=== PATIENT | female | born 1975 | race American Indian/Alaskan Native ===

== ENCOUNTER 2016-09-03 17:51 | Emergency (ER) | payer SELFPAY ==
--- NOTE | 2016-09-03 18:37 | Emergency Department Report ---
Chief Complaint: High BP Stated Complaint: HTN-HEADACHE 165/100 Time Seen by Provider: 09/03/16 18:14 - HPI History of Present Illness: This is a 40-year-old female that comes in for concerns of high blood pressure. Patient reports that she's taken her blood pressure at home it was 165/100 she reports she's been having a headache for 2 days dizziness and nausea and some blurred vision. Patient does have a past medical history of hypertension and diabetes currently she is on metformin 500 mg 3 times a day glyburide 5 mg 3 times a day last took that yesterday she is on amlodipine 5 mg for hypertension and triamterene 37.5 and 25 daily. Patient does inform me that she 's been a little nervous of eating foods secondary to not sure what to eat when her blood pressure elevates. So we will see patient today to respond her blood pressure. - Exam Vital Signs: Vital Signs 09/03/16 17:55 Temperature 98.2 F Pulse Rate 82 Respiratory 16 Rate Blood Pressure 147/104 O2 Sat by Pulse 100 Oximetry Physical Exam: He is alert and oriented 3 cardiovascular S1-S2 regular rate and rhythm respiratory clear to auscultation MSE screening note: Focused history and physical exam performed. Due to findings the following was ordered: Appropriate last water for patient should be evaluated by the main ER ordered amlodipine 5mg milligrams ED Disposition for MSE Condition: Stable
[2016-09-03 19:12] LABS: Hematocrit 42.4 % (30.3-42.9); Mean Corpuscular HGB Conc 33 % (30-34); Mean Corpuscular Hemoglobin 31 pg (28-32); Mean Corpuscular Volume 94 fl (79-97); Platelet Count 421 K/mm3 (140-440); Red Blood Count 4.53 M/mm3 (3.65-5.03); Red Cell Distribution Width 14.4 % (13.2-15.2); White Blood Count 8.9 K/mm3 (4.5-11.0)
[2016-09-03 19:29] LABS: BUN/Creatinine Ratio 11.11; Blood Urea Nitrogen 10 mg/dL (7-17); Calcium 9.6 mg/dL (8.4-10.2); Carbon Dioxide 28 mmol/L (22-30); Chloride 94.6 mmol/L (98-107); Glucose 106 mg/dL (65-100); Potassium 3.9 mmol/L (3.6-5.0); Sodium 137 mmol/L (137-145)
[2016-09-03 19:33] LABS: Anion Gap 18 mmol/L
[2016-09-03] MEDS ORDERED: NORVASC PO ONE (20:41)
[2016-09-03 22:48] VITALS: BP 137/96
--- NOTE | 2016-09-07 05:30 | ED Elopement Review ---
ED Pt Elopement review - Results review Lab results: Laboratory Tests 09/03/16 09/03/16 18:51 18:51 WBC 8.9 RBC 4.53 Hgb 14.0 Hct 42.4 MCV 94 MCH 31 MCHC 33 RDW 14.4 Plt Count 421 Sodium 137 Potassium 3.9 Chloride 94.6 L Carbon Dioxide 28 BUN 10 Creatinine 0.9 Estimated GFR > 60 BUN/Creatinine Ratio 11.11 Glucose 106 H Calcium 9.6 - Call Back decision Pt Call Back Decision: No action required
== END 2016-09-03 22:48 | disposition left against medical advice (07) ==
LOC: ED 17:51
DX: I10 Essential (primary) hypertension (principal); R42 Dizziness and giddiness; R11.0 Nausea; Z53.21 Procedure and treatment not carried out due to patient leaving prior to being seen by health care provider
CPT/HCPCS: 36415; 80048; 85027

== ENCOUNTER 2016-09-08 05:40 | Emergency (ER) | payer SELFPAY | END 2016-09-08 05:42 | disposition left against medical advice (07) | LOC: ED 05:40 | DX: R10.10 Upper abdominal pain, unspecified (principal); Z53.21 Procedure and treatment not carried out due to patient leaving prior to being seen by health care provider ==

== ENCOUNTER 2016-09-08 12:39 | Emergency (ER) | payer BC ==
--- NOTE | 2016-09-08 23:04 | Emergency Department Report ---
ED Abdominal Pain HPI - General Chief Complaint: Abdominal Pain Stated Complaint: UPPER ABD PAIN Time Seen by Provider: 09/08/16 23:03 Source: patient Mode of arrival: Ambulatory Limitations: No Limitations - History of Present Illness Initial Comments: Patient here reports periumbilical and upper abdominal pain for 3-4 days with nausea and reports that she is constipated. She says she has not had a bowel movement for 1 week. Patient says she used an enema but only little pellets, out of her rectal area. He says she's had similar issues with constipation in the past. Has any urinary burning, frequency, urgency or blood in urine. Denies any back pain. Reports some nausea. Denies any vaginal bleeding or discharge. Patient denies any fever or chills. MD Complaint: abdominal pain Onset/Timin -: days(s) Location: periumbilical, epigastric Radiation: none Migration to: no migration Severity: moderate Severity scale (0 -10): 7 Quality: cramping Consistency: intermittent Improves With: nothing Worsens With: nothing Context: other (patient reports that she is constipated) Associated Symptoms: nausea, constipation. denies: vomiting, diarrhea, fever, chills, dysuria, melena, hematuria, anorexia, syncope Treatments Prior to Arrival: other (Enema) - Related Data Previous Rx's Medication Instructions Recorded Last Taken Type Docusate Sodium [Colace] 100 mg PO BID #60 capsule 09/09/16 Unknown Rx Magnesium Citrate [Citrate of 300 ml PO ONCE #1 bottle 09/09/16 Unknown Rx Magnesia] Allergies Allergy/AdvReac Type Severity Reaction Status Date / Time No Known Allergies Allergy Unverified 01/10/15 21:40 ED Review of Systems ROS: Stated complaint: UPPER ABD PAIN Other details as noted in HPI Comment: All other systems reviewed and negative Constitutional: denies: chills, fever Eyes: eye pain ENT: denies: ear pain, throat pain, congestion Respiratory: no symptoms reported Cardiovascular: denies: chest pain, palpitations, edema, syncope Gastrointestinal: abdominal pain, nausea, constipation. denies: vomiting, diarrhea, hematemesis, melena, hematochezia Genitourinary: denies: urgency, dysuria, frequency, hematuria, discharge, abnormal menses, dyspareunia Musculoskeletal: denies: back pain, arthralgia Skin: denies: rash Neurological: denies: headache, weakness, numbness, paresthesias, confusion, abnormal gait, vertigo ED Past Medical Hx - Past Medical History Previous Medical History?: Yes Hx Hypertension: Yes Hx Asthma: Yes - Surgical History Past Surgical History?: No - Family History Family history: no significant - Social History Smoking Status: Never Smoker Substance Use Type: None - Medications Home Medications: Home Medications Medication Instructions Recorded Confirmed Last Taken Type Docusate Sodium [Colace] 100 mg PO BID #60 capsule 09/09/16 Unknown Rx Magnesium Citrate [Citrate of 300 ml PO ONCE #1 bottle 09/09/16 Unknown Rx Magnesia] ED Physical Exam - General Limitations: No Limitations General appearance: alert, in no apparent distress - Head Head exam: Present: atraumatic, normocephalic, normal inspection - Eye Eye exam: Present: normal appearance, PERRL, EOMI Pupils: Present: normal accommodation - ENT ENT exam: Present: normal exam, normal orophraynx, mucous membranes dry, mucous membranes moist, TM's normal bilaterally, normal external ear exam - Neck Neck exam: Present: normal inspection, full ROM. Absent: tenderness, meningismus, lymphadenopathy - Respiratory Respiratory exam: Present: normal lung sounds bilaterally. Absent: respiratory distress, chest wall tenderness - Cardiovascular Cardiovascular Exam: Present: regular rate, normal rhythm, normal heart sounds - GI/Abdominal GI/Abdominal exam: Present: soft, normal bowel sounds. Absent: distended, tenderness, guarding, rebound, rigid, organomegaly, mass, bruit, pulsatile mass , hernia - Extremities Exam Extremities exam: Present: normal inspection, full ROM, normal capillary refill. Absent: tenderness, pedal edema, joint swelling, calf tenderness - Back Exam Back exam: Present: normal inspection, full ROM. Absent: tenderness, CVA tenderness (R), CVA tenderness (L), muscle spasm, paraspinal tenderness, vertebral tenderness, rash noted - Neurological Exam Neurological exam: Present: alert, oriented X3, normal gait - Psychiatric Psychiatric exam: Present: normal affect, normal mood - Skin Skin exam: Present: warm, dry, intact, normal color. Absent: rash ED Course Vital Signs 09/08/16 13:12 Temperature 99.0 F Pulse Rate 89 Respiratory 16 Rate Blood Pressure 132/95 O2 Sat by Pulse 99 Oximetry Vital Signs 09/08/16 09/09/16 13:12 03:50 Temperature 99.0 F 98.8 F Pulse Rate 89 86 Respiratory 16 16 Rate Blood Pressure 132/95 Blood Pressure 128/68 [Left] O2 Sat by Pulse 99 99 Oximetry - Reevaluation(s) Reevaluation #1: 09/09/16 01:15 Patient stable at present. She is lying quietly in bed in no acute distress Reevaluation #2: 09/09/16 03:04 Abdominal exam remains unchanged. She received potassium 40 mEq for a potassium level of 3.4. ED Medical Decision Making - Lab Data Result diagrams: 09/08/16 23:38 09/08/16 23:38 Lab Results 09/08/16 09/08/16 09/08/16 Range/Units 23:30 23:38 23:38 WBC 13.2 H (4.5-11.0) K/mm3 RBC 4.40 (3.65-5.03) M/mm3 Hgb 13.8 (10.1-14.3) gm/dl Hct 41.3 (30.3-42.9) % MCV 94 (79-97) fl MCH 31 (28-32) pg MCHC 33 (30-34) % RDW 13.9 (13.2-15.2) % Plt Count 374 (140-440) K/mm3 Sodium 140 (137-145) mmol/L Potassium 3.4 L (3.6-5.0) mmol/L Chloride 96.2 L (98-107) mmol/L Carbon Dioxide 31 H (22-30) mmol/L Anion Gap 16 mmol/L BUN 15 (7-17) mg/dL Creatinine 1.0 (0.7-1.2) mg/dL Estimated GFR > 60 ml/min BUN/Creatinine Ratio 15.00 % Glucose 81 (65-100) mg/dL Calcium 9.5 (8.4-10.2) mg/dL Amylase 61 (27-131) units/L Lipase 32 (13-60) units/L HCG, Qual (Negative) Urine Color Yellow (Yellow) Urine Turbidity Clear (Clear) Urine pH 6.0 (5.0-7.0) Ur Specific Prole 1.023 (1.003-1.030) Urine Protein <15 mg/dl (Negative) mg/dL Urine Glucose (UA) Neg (Negative) mg/dL Urine Ketones Neg (Negative) mg/dL Urine Blood Neg (Negative) Urine Nitrite Neg (Negative) Urine Bilirubin Neg (Negative) Urine Urobilinogen 2.0 (<2.0) mg/dL Ur Leukocyte Esterase Neg (Negative) Urine WBC (Auto) 1.0 (0.0-6.0) /HPF Urine RBC (Auto) < 1.0 (0.0-6.0) /HPF U Epithel Cells (Auto) 4.0 (0-13.0) /HPF Urine Mucus Few /HPF 09/08/16 Range/Units 23:38 WBC (4.5-11.0) K/mm3 RBC (3.65-5.03) M/mm3 Hgb (10.1-14.3) gm/dl Hct (30.3-42.9) % MCV (79-97) fl MCH (28-32) pg MCHC (30-34) % RDW (13.2-15.2) % Plt Count (140-440) K/mm3 Sodium (137-145) mmol/L Potassium (3.6-5.0) mmol/L Chloride (98-107) mmol/L Carbon Dioxide (22-30) mmol/L Anion Gap mmol/L BUN (7-17) mg/dL Creatinine (0.7-1.2) mg/dL Estimated GFR ml/min BUN/Creatinine Ratio % Glucose (65-100) mg/dL Calcium (8.4-10.2) mg/dL Amylase (27-131) units/L Lipase (13-60) units/L HCG, Qual Negative (Negative) Urine Color (Yellow) Urine Turbidity (Clear) Urine pH (5.0-7.0) Ur Specific Prole (1.003-1.030) Urine Protein (Negative) mg/dL Urine Glucose (UA) (Negative) mg/dL Urine Ketones (Negative) mg/dL Urine Blood (Negative) Urine Nitrite (Negative) Urine Bilirubin (Negative) Urine Urobilinogen (<2.0) mg/dL Ur Leukocyte Esterase (Negative) Urine WBC (Auto) (0.0-6.0) /HPF Urine RBC (Auto) (0.0-6.0) /HPF U Epithel Cells (Auto) (0-13.0) /HPF Urine Mucus /HPF - Radiology Data Radiology results: report reviewed, image reviewed interpreted by me: Moderate stool noted in colon. CT scan of the abdomen and pelvis reveals there is no evidence of intestinal or urinary tract obstruction. No ileus or enteritis. The appendix is normal. GI tract shows no obstruction. Liver, spleen, gallbladder, pancreas, adrenals and kidneys are normal normal lymph nodes and vasculature the uterus is normal and both ovaries have normal size and appearance. No free fluid noted. X-ray abdominal series with chest 1 view revealed no acute abnormalities. Nonobstructive bowel gas pattern. - Medical Decision Making ED course: Discussed with patient her lab work and discussed with her that her potassium level was mildly decreased at 3.4. She was repleted with 40 mg of K- DUR oF in emergency room. Discussed with her that she needs to eat bananas which is rich in potassium. I discussed with her that her urine was negative for infection and she was not . White blood cells mildly elevated at less than 14. Patient abdominal exam remained normal. CT scan of the abdomen and pelvis was normal and abdominal series with chest PA one view revealed normal findings. PT does have moderate amount of stool in colon. Cells were discussed with patient. He voiced understanding of discharge instruction and need to follow up with GI doctor for further evaluation of constipation and abdominal pain. She is not having any abdominal pain at present. Discharged home in stable condition with prescription for Mag. Citrate and Colace. Critical care attestation.: If time is entered above; I have spent that time in minutes in the direct care of this critically ill patient, excluding procedure time. ED Disposition Clinical Impression: Constipation Qualifiers: Constipation type: unspecified constipation type Qualified Code(s): K59.00 - Constipation, unspecified Abdominal pain Qualifiers: Abdominal location: periumbilical Qualified Code(s): R10.33 - Periumbilical pain Disposition: DISCHARGED TO HOME OR SELFCARE Is pt being admited?: No Does the pt Need Aspirin: No Condition: Stable Instructions: Abdominal Pain (ED), High Fiber Diet (ED), Constipation (ED) Additional Instructions: increase your fluid intake Eat food high in fiber to include fruits and vegetables. Take medication as prescribed. Your potassium was mildly decreased at 3.4. You received supplement in emergency room. These eat banana twice daily as this is Rich in potassium. He will need to follow-up with your primary care physician for repeat lab work. Prescriptions: Magnesium Citrate [Citrate of Magnesia] 300 ml PO ONCE #1 bottle Docusate Sodium [Colace] 100 mg PO BID #60 capsule Referrals: LEN TSAI MD [Primary Care Provider] - 09/10/16 [facility] [Provider Group] - 09/10/16 Forms: Accompanied Note, Work/School Release Form(ED)
[2016-09-09 00:16] LABS: Bilirubin,Urine NEG (Negative); Blood,Urine NEG (Negative); Ketones,Urine NEG (Negative); Leukocyte Esterase,Urine NEG (Negative); Mucus,Urine FEW /HPF; Nitrite,Urine NEG (Negative); Protein,Urine <15 mg/dL mg/dL (Negative); RBC,Urine < 1.0 /HPF (0.0-6.0)
[2016-09-09 00:54] LABS: Hematocrit 41.3 % (30.3-42.9); Hemoglobin 13.8 gm/dl (10.1-14.3); Mean Corpuscular HGB Conc 33 % (30-34); Mean Corpuscular Hemoglobin 31 pg (28-32); Mean Corpuscular Volume 94 fl (79-97); Platelet Count 374 K/mm3 (140-440); Red Cell Distribution Width 13.9 % (13.2-15.2); White Blood Count 13.2 K/mm3 (4.5-11.0)
[2016-09-09 01:40] LABS: Amylase 61 units/L (27-131); Blood Urea Nitrogen 15 mg/dL (7-17); Calcium 9.5 mg/dL (8.4-10.2); Carbon Dioxide 31 mmol/L (22-30); Chloride 96.2 mmol/L (98-107); Glucose 81 mg/dL (65-100); Lipase 32 units/L (13-60); Potassium 3.4 mmol/L (3.6-5.0); Sodium 140 mmol/L (137-145)
[2016-09-09 01:41] LABS: Anion Gap 16 mmol/L
--- NOTE | 2016-09-09 02:14 | XRay Report ---
FINAL REPORT PROCEDURE: XR ABD SERIES W CXR 1V TECHNIQUE: Abdominal series complete, including supine and upright AP views of the abdomen and frontal chest. HISTORY: constipation and abd pain COMPARISON: No prior studies are available for comparison. FINDINGS: Heart: Normal. Mediastinum/Vessels: Normal. Lungs/Pleural space: Normal. Bowel gas pattern: Nonobstructive. Masses or calcifications: None. Bony structures: No acute osseous abnormality. Other: No free intraperitoneal air. IMPRESSION: No acute abnormality.
[2016-09-09] MEDS ORDERED: K-DUR PO ONE (02:27)
--- NOTE | 2016-09-09 02:59 | Cat Scan Report ---
FINAL REPORT PROCEDURE: CT ABDOMEN PELVIS WO CON TECHNIQUE: Computerized axial tomography of the abdomen and pelvis was performed without intravenous contrast. This study is performed without intravascular contrast material and its sensitivity for abdominal and pelvic pathology, including neoplasms, inflammation, abscess, free fluid, thrombosis, arterial dissection and infarction, is reduced compared with a contrast enhanced study. HISTORY: abdominal pain COMPARISON: No prior studies are available for comparison. FINDINGS: Visualized lower thorax: No significant abnormality. Liver: Normal size and attenuation. Spleen: Normal size and attenuation. Gallbladder and biliary system: Normal. Pancreas: Normal. Adrenals: Normal. Kidneys: Normal. GI tract: No obstruction. No ileus or enteritis. The cecum, appendix and colon are normal.. Lymph nodes and mesentery: Normal. Vasculature: Normal. Bladder: Normal. Reproductive organs: The uterus is normal. Both ovaries have normal size and appearance.. Peritoneum: No free fluid. Musculoskeletal structures: No significant abnormality. Other: None. IMPRESSION: There is no evidence of intestinal or urinary tract obstruction. No ileus or enteritis. The appendix is normal..
[2016-09-09 03:35] LABS: Basophils % (Manual) 0 % (0.0-1.8); Blastocytes % (Manual) 0 %; RBC Morphology Normal
[2016-09-09 03:36] LABS: Diff Status Complete
[2016-09-09 03:56] VITALS: BP 128/68
== END 2016-09-09 04:25 | disposition home or self-care (01) ==
LOC: ED 12:39
DX: K59.00 Constipation, unspecified (principal); R10.33 Periumbilical pain; I10 Essential (primary) hypertension; J45.909 Unspecified asthma, uncomplicated
CPT/HCPCS: 36415; 74022; 74176; 80048; 81001; 82150; 83690; 84703; 85007; 85025